=== PATIENT | male | born 1960 | race Caucasian/White ===

== ENCOUNTER 2021-01-31 10:30 | Outpatient (RCR) | payer OTHER, MEDICAID, SELFPAY ==
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
--- NOTE | 2020-11-08 09:21 | HP.PTREVAL ---
MELCHOR THOMPSON, It has been my pleasure to treat TREY VALADEZ over the last 5 visits for concussion. Please see the progress note below for an update on the physical therapy plan of care! Subjective: Neck pain 6/10 status quo. DORSEY is back maybe depending on how he sleeps. Dizzyness often in response to standing and turning for short period. Also getting up out of chair for short duration. Sometimes getting out of bed lasts a little longer. HEP of BD makes him dizzy. To neuro next week. Objective/Function: VOR 60 sec makes 3/10, VOR x 2 makes 5/10 lasting longer but only 12 seconds. Up form knee gives quick dizzyness similar to getting out of bed in am. PROM neck rotation is close to 70 B but patient self limits aROM due to pain at about 40 degrees. PROM ext to about 65 but slef limtied ext despite VC to 35. Walking and trasnferring I. Pt improving slowly with neck pain, dizzyness improving but slowly. Plan Plan: MH, STM, PROM neck adn progress to strengthen. Please give home neck stretches if toerates today well(UT, lev scap) Verbally monitor vestibular HEP Goals Goal 1:: Dizzyness abolished. Goal Time Frame: 4-6 Weeks Goal 2:: Pt feel DORSEY are 75% better adn 1/10 at worst. Goal Time Frame: 4-6 Weeks Goal 3:: Neck adn LB AROM without pain or hesitation Goal Time Frame: 4-6 Weeks Goal 4:: 29/30 FGA to limit risk Goal Time Frame: 4-6 Weeks Goal 5:: Pt feel 90% back to normal with activities at home. Goal Time Frame: 4-6 Weeks Anticipated Interventions Patient/Client Instruction: Educate patient on: Condition, Plan of Care For the Purpose of:: To decrease pain, To increase ROM, To improve muscle performance and motor function, To increase tolerance to activity/condition/position, To improve performance and independence with ADL's, To improve ability of physical actions for home/community/work/leisure, To improve gait and locomotor functions, To improve health of tissue Therapeutic Exercise to Include: Strength training, Balance training, Postural training, Flexibilty training, Gait and locomotor training, Neuromotor development, Passive ROM, Active ROM Comment: postiional. For the Purpose of:: To decrease pain, To improve nutrient delivery to tissue, To improve muscle performance and motor function, To increase tolerance to activity/condition/position, To improve ability of physical actions for home/community/work/leisure, To improve gait and locomotor functions Manual Therapy Techniques to Include: Mobilization, Passive ROM, Soft tissue mobilization For the Purpose of:: To decrease pain, To increase ROM, To improve nutrient delivery to tissue Thermo therapy (hot pack): Yes For the Purpose of:: To decrease pain Please do not hesitate to contact me at [phone] by phone or if you have questions or concerns regarding this new plan of care! Sincerely, Abdias Rae, DPT, OCS, CSCS
--- NOTE | 2021-01-31 11:53 | HP.PTREVAL ---
MELCHOR THOMPSON, It has been my pleasure to treat TREY VALADEZ over the last 8 visits for concussion. Please see the progress note below for an update on the physical therapy plan of care! Subjective: Pt. is here after being away for a bit. He reports that his neck is overall doing better, but is still having bouts of dizziness. Pt. reports having DORSEY daily with intensity up to 9-10/10 at times. pt. reports feeling ill for a few hours after last time he was checked for BPPV. He does reports some dizziness with getting up/down, rolling in bed, but also will get dizzy with just walking at times. He has not been to PT in awhile due to prior obligations. He is off work right, I have been lying low. He reports that his neck and LBP is much better, but is still having frequent DORSEY and dizziness. Objective/Function: Pt. have overall decent ROM of his cervical spine. Flexion- min loss slight increase in off feeling, ext min/mod loss sligth increase in off feeling, rotation min loss bilat NE, SB min loss bilat NE. Pt. has good shoulder ROM without increase in symptoms. Eye tracking laterally and horizontally NE, no nystagmus noted. Head shaking with spontaneous eye opening: no nystagmus, but reports slight off feeling.. + for slight dizziness with R devora xiong pike- no nystagmus, improved with second attempt or Marky's maneuver. Slight + with L devora xiong pike, decreased with Marky's to L side. I did not noticed a large amount of nystagmus with testing today, but he did report having some symptoms. He did report that they were much better than when he saw Dr. Abdias Rae, PT, OCS back in November. Pt. is starting ST for memory loss and word finding as well. Plan Plan: Assess patients tolerance to Marky's menuever next visit, potential re assessment of symptoms as needed. Add in PT Abdias Rae's assessment for need for further PT. Goals Goal 1:: Dizzyness abolished. Goal Time Frame: 4-6 Weeks Goal Progress: Progressing Goal 2:: Pt feel DORSEY are 75% better adn 1/10 at worst. Goal Time Frame: 4-6 Weeks Goal Progress: Progressing Goal 3:: Neck adn LB AROM without pain or hesitation Goal Time Frame: 4-6 Weeks Goal Progress: Progressing Goal 4:: 30 FGA to limit risk Goal Time Frame: 4-6 Weeks Goal Progress: Progressing Goal 5:: Pt feel 90% back to normal with activities at home. Goal Time Frame: 4-6 Weeks Goal Progress: Progressing Anticipated Interventions Patient/Client Instruction: Educate patient on: Condition, Plan of Care For the Purpose of:: To decrease pain, To increase ROM, To improve muscle performance and motor function, To increase tolerance to activity/condition/position, To improve performance and independence with ADL's, To improve ability of physical actions for home/community/work/leisure, To improve gait and locomotor functions, To improve health of tissue Therapeutic Exercise to Include: Strength training, Balance training, Postural training, Flexibilty training, Gait and locomotor training, Neuromotor development, Passive ROM, Active ROM Comment: postiional. For the Purpose of:: To decrease pain, To improve nutrient delivery to tissue, To improve muscle performance and motor function, To increase tolerance to activity/condition/position, To improve ability of physical actions for home/community/work/leisure, To improve gait and locomotor functions Manual Therapy Techniques to Include: Mobilization, Passive ROM, Soft tissue mobilization For the Purpose of:: To decrease pain, To increase ROM, To improve nutrient delivery to tissue Thermo therapy (hot pack): Yes For the Purpose of:: To decrease pain Please do not hesitate to contact me at [phone] by phone or if you have questions or concerns regarding this new plan of care! Sincerely, Alonzo Low DPT
--- NOTE | 2021-04-02 07:22 | HP.PT.NRP ---
TREY VALADEZ was seen in my office for initial evaluation on 10/20/20. The following Plan of Care was established for this patient: Initial Frequency: 2x /Week Initial Duration: 4-6 Weeks Patient/Client Instruction: Educate patient on: Condition, Plan of Care For the Purpose of:: To decrease pain, To increase ROM, To improve muscle performance and motor function, To increase tolerance to activity/condition/position, To improve performance and independence with ADL's, To improve ability of physical actions for home/community/work/leisure, To improve gait and locomotor functions, To improve health of tissue Therapeutic Exercise to Include: Strength training, Balance training, Postural training, Flexibilty training, Gait and locomotor training, Neuromotor development, Passive ROM, Active ROM For the Purpose of:: To decrease pain, To improve nutrient delivery to tissue, To improve muscle performance and motor function, To increase tolerance to activity/condition/position, To improve ability of physical actions for home/community/work/leisure, To improve gait and locomotor functions Manual Therapy Techniques to Include: Mobilization, Passive ROM, Soft tissue mobilization For the Purpose of:: To decrease pain, To increase ROM, To improve nutrient delivery to tissue Thermo therapy (hot pack): Yes For the Purpose of:: To decrease pain This patient was last seen in our office 01/31/21. Pertinent comments regarding their Physical therapy will appear below: Pt seen 8 visits of POC and was about 50% better. New POC was established but patient cancelled and no showed next two visits without rescheduling. at this point, it has been almost two months and I will disocntinue due to nonattendance. At this point I will be discontinuing this patient from physical therapy. I would be happy to see this patient again in the future if found appropriate by the physician. Thank you! Abdias Rae, DPT, OCS, CSCS Balance/Gait/Functional tests - Balance/Special Test Scores Functional Gait Assessment Score: 27 % Disability: 10.0000 Lower Extremity Functional Score: 32
== END 2021-01-31 19:00 | disposition home or self-care (01) ==
LOC: PT 10:30
PROVIDERS: PCP Internal Medicine
DX: S06.0X9D Concussion with loss of consciousness of unspecified duration, subsequent encounter (principal)
CPT/HCPCS: 97110; 97140; 97163; 97164; 97530

== ENCOUNTER 2021-09-20 18:44 | Emergency (ER) | payer OTHER, MEDICAID, SELFPAY ==
[2021-09-20 18:45] VITALS: BP 145/92; PULSE 111; RESP 16; TEMP 37.3; O2SAT 97; BMI 28.5
[2021-09-20 18:51] VITALS: BP 148/92; PULSE 111; RESP 16; TEMP 37.3; O2SAT 97
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
[2021-09-20 19:02] VITALS: O2SAT 97
[2021-09-20 19:03] LABS: Absolute Lymphocyte Count 3.44 X10^3/uL (0.83-4.51); Absolute Neutrophil Count 10.6 X10^3/uL (2.0-7.7); Basophil# 0.09 X10^3/uL; Basophil% 0.6 % (0-1); Eosinophil# 0.27 X10^3/uL; Eosinophils% 1.7 % (0-5); Hematocrit 49.9 % (40-54); Hemoglobin 17.6 g/dL (13.0-16.5); Lymphocyte # 3.44 X10^3/ul (0.83-4.51); Lymphocyte % 22.1 % (19-41); Mean Corp Hgb Conc 35.3 g/dL (32-36); Mean Corpuscular Hgb 31.5 pg (27.0-32.0); Mean Corpuscular Volume 89.3 fL (80-94); Mean Platelet Vol. 9.7 fl (6.2-12.0); Monocyte# 1.13 X10^3/uL; Monocyte% 7.3 % (0-10); NRBC Flagged by Analyzer 0 % (0-5); Neutrophil # 10.58 X10^3/uL (2.7-7.7); Neutrophil % 67.9 % (47-70); Platelet Count 247 K/mm3 (150-450); RBC Distribution Width CV 12.1 % (11.6-14.6); RBC Distribution Width SD 39.7 fl (35.1-43.9); Red Blood Count 5.59 M/mm3 (4.6-6.2); White Blood Count 15.6 K/mm3 (4.4-11.0)
[2021-09-20 19:19] LABS: Partial Thromboplast Time 26.4 Seconds (24.1-36.2)
[2021-09-20 19:26] LABS: Anion Gap 3 (5-15); BUN 14 mg/dL (7-18); Calcium,Total 11.9 mg/dL (8.5-10.1); Chloride 109 mmol/L (98-107); Creatinine, Serum 1.08 mg/dL (0.70-1.30); EST Glomerular Filtration Rate 74 mL/min (>60); Est Glom Filt Rate - Afr Amer 90 mL/min (>60); Estimated Creatinine Clearance 60.91 ml/min; Glucose 113 mg/dL (74-106); Potassium 3.8 mmol/L (3.5-5.1); Sodium Level 140 mmol/L (136-145); Troponin-I HS < 3 pg/mL (3.0-78.0)
--- NOTE | 2021-09-20 19:27 | ED.VIS.STROK ---
HPI History of Present Illness Chief Complaint: Weakness Informant: patient and spouse/S.O. Narrative Narrative: Patient presenting with an episode of ataxia. This occurred when he was walking about 20 minutes prior to arrival with a parking lot of [employer]. The significant other states he was bouncing from one side of the parking lot to the other, very unsteady. He did not fall. She states she grabbed him by the close before that could happen. He states he felt like his legs were going in front of him and he could not get on top of them. He denies any feeling of dizziness in his head, pain, vision changes/diplopia, peripheral neurologic symptoms of any kind. Denies feeling any other symptoms. The girlfriend is concerned because he had an episode this bad on September 02 when he was subsequently seen and admitted at [facility] and diagnosed with a TIA after getting an MRI. He was discharged on aspirin and clopidogrel, and he has had episodes similar to this almost every day since then, however this particular 1 was much worse, similar to the one he had on 09/02. The patient states today he has had 3 or so episodes of this, they are when he walks, but he has walked without the symptoms as well today. [facility] Medical History (Updated 09/20/21 @ 21:[address] Alfonso Deras MD) Cholecystectomy planned Traumatic brain injury Home Medications aspirin [Aspir-81] 81 mg PO DAILY 09/20/21 [History Last Taken Unknown] clopidogrel 75 mg PO DAILY 09/20/21 [History Last Taken Unknown] nortriptyline 50 mg PO DAILY 09/20/21 [History Last Taken Unknown] rimegepant [Nurtec ODT] 75 mg PO PRN PRN 09/20/21 [History Last Taken Unknown] Allergy/AdvReac Type Severity Reaction Status Date / Time No Known Allergies Allergy Verified 09/20/21 18:53 Social History Smoking Status: Current every day smoker tobacco type: cigarettes ROS ROS ED Constitutional Constitutional ED: Denies chills or fever(s) Eyes Eyes: Denies change in vision or diplopia ENT ENT ED: Denies rhinorrhea or sore throat Cardiovascular Cardiovascular: Denies chest pain or palpitations Respiratory/Chest Respiratory/Chest: Denies cough or dyspnea Gastrointestinal Gastrointestinal: Denies abdominal pain, diarrhea, nausea or vomiting Genitourinary Genitourinary ED: Denies dysuria or hematuria Musculoskeletal Musculoskeletal: Denies back pain or neck pain Integumentary Denies abscess or rash Neurologic Neurologic: Reports as per HPI and disequilibrium; Denies headache(s), paresthesias, radicular pain, seizure-like activity, syncope, tingling, tremor(s), vertigo or weakness Psychiatric Psychiatric: Denies anxiety or suicidal thoughts EXAM Physical Exam Const Vital Signs: 09/20/21 18:45 09/20/21 18:51 09/20/21 19:02 Temperature 99.2 F H 99.2 F H Temperature Source Oral Temporal Pulse Rate 111 H 111 H Respiratory Rate 16 16 Blood Pressure 145/92 H 148/92 H Blood Pressure Mean 109 110 Pulse Ox 97 97 97 Oxygen Delivery Method Room Air Room Air Room Air 09/20/21 20:12 09/20/21 21:58 Temperature 97.9 F Temperature Source Temporal Pulse Rate 102 H 95 Respiratory Rate 16 20 H Blood Pressure 157/90 H 147/96 H Blood Pressure Mean 112 113 Pulse Ox 97 92 Oxygen Delivery Method Room Air Room Air Positive well nourished and well developed General Appearance ED: well developed and NAD HEENT Reports moist mucous membranes normocephalic and atraumatic Eyes PERRL and EOMs intact bilaterally Neck full ROM and supple Resp normal respiratory effort and clear to auscultation bilaterally Cardio regular rate, regular rhythm and no murmurs Rate: tachycardic GI non-tender and non-distended Auscultation: normoactive bowel sounds Palpation: soft Back/Spine no CVA tenderness General Back: other FROM Extremity normal to inspection General Extremety ED: Negative for edema, pulses abnormal or tenderness General Extremity: Negative for edema or pulses abnormal Neuro oriented x3, CN's II-XII intact bilaterally, no sensory deficits noted and gait normal Neuro Narrative: Patient able to walk to the door of the room and back without any ataxia or issues. Normal qqoygm-dx-kzzt and zkhi-jq-xtee bilaterally. Sensorium / Orientation: awake and alert Motor Exam: strength 5/5 throughout Skin no rashes or lesions noted and no wounds STROKE Vital Signs/Narrative: Vital Signs Temp Pulse Resp BP Pulse Ox 09/20/21 21:58 97.9 F 95 20 H 147/96 H 92 09/20/21 20:12 102 H 16 157/90 H 97 09/20/21 19:02 97 09/20/21 18:51 99.2 F H 111 H 16 148/92 H 97 09/20/21 18:45 99.2 F H 111 H 16 145/92 H 97 NIHSS Initial: 1a Level of Consciousness: 0 1b LOC Questions (Score 2 if aphasic/stupor): 0 1c LOC Commands (Only score 1st attempt): 0 2 Best Gaze (If aphasic, use reflexive mvmts.): 0 3 Visual: 0 4 Facial Palsy: 0 5 Motor Arm Right (UN = amputation/fusion): 0 5 Motor Arm Left: 0 6 Motor Leg Right: 0 6 Motor Leg Left: 0 7 Limb ataxia (Only + if out of proportion): 0 8 Sensory (Aphasia/stupor=0 or 1, coma=2): 0 9 Best Language: 0 10 Dysarthria (mute, coma=2, intubated=UN): 0 11 Extinction and Inattention (only scored if +): 0 Total Score: 0 MDM MDM MDM Narrative Medical decision making narrative: Patient remained clinically hemodynamically stable while we were working him up. He has a nonspecific leukocytosis of 15.6 of unknown etiology, with no left shift or bandemia. Urinalysis and chest x-ray were obtained, that showed no evidence of any infections. A family member the patient called and was concerned that he may be abusing some type of substance; since we had a urinalysis already performed, I added a urine drug screen, it is negative. This does not rule out all possibilities although it is unknown if they would be involved were causing these intermittent symptoms anyway. I attempted to discuss with neurology on-call at [facility] since the patient was recently discharged from there and was seen by neurology. As of the dictation, have been unable to reach them. We talked to the transfer center and had been paged again, they were trying still but there was debate about who is actually electronics engineering professor for neurology there. The patient's significant other became irate, angry at me and other staff because she had not seen anyone in the room, although nurses had indeed been in and out, and I had one of the nurses update her with the tests that we had back so far at the time, when the rest came back I went in to personally update them. She was speaking rudely and interrupting, concerned we were not concerned about a stroke apparently. I tried to explain to her that it was just the opposite, which is why I wanted to speak with Neurology before we either admitted him here or transferred back to [facility]; but he did not need to be a stroke alert due to resolved symptoms that had been recurrent for several weeks, and so he was not an IV tPA candidate, nor likely to have acute LVO. She was verbally a hindrance to my clinical reevaluation. After she left, I reevaluated the patient, who is asymptomatic and continuing to ambulate around the room normally w/o ataxia. He wanted to leave [place], because she's my ride back to [place]. I explained to him that I really wanted to speak with the Neurologist first, and pleaded for him to stay at least until I could discuss his case with them and try to get a recommendation. He was appreciative of our care, and left with his significant other and refused to sign the AMA paper. Lab Data Attestation: I reviewed the patient's lab results. Labs: Laboratory Results - last 24 hr 09/20/21 09/20/21 09/20/21 18:47 18:47 18:47 WBC 15.6 H RBC 5.59 Hgb 17.6 H Hct 49.9 MCV 89.3 MCH 31.5 MCHC 35.3 RDW Std Deviation 39.7 RDW Coeff of Kimmie 12.1 Plt Count 247 MPV 9.7 Immature Gran % (Auto) 0.400 Neut % (Auto) 67.9 Lymph % (Auto) 22.1 [place] % (Auto) 7.3 Eos % (Auto) 1.7 Baso % (Auto) 0.6 Absolute Neuts (auto) 10.6 H Absolute Lymphs (auto) 3.44 Nucleated RBC % 0 PT 13.0 INR 1.0 APTT 26.4 Sodium 140 Potassium 3.8 Chloride 109 H Carbon Dioxide 28.0 Anion Gap 3 L BUN 14 Creatinine 1.08 Estim Creat Clear Calc 60.91 Est GFR (MDRD) Af Amer 90 Est GFR (MDRD) Non-Af 74 BUN/Creatinine Ratio 13.0 Glucose 113 H Calcium 11.9 H Troponin I High Sens < 3 L Urine Color Urine Clarity Urine pH Ur Specific [place] Urine Protein Urine Glucose (UA) Urine Ketones Urine Occult Blood Urine Nitrite Urine Bilirubin Urine Urobilinogen Ur Leukocyte Esterase Urine RBC Urine WBC Ur Squamous Epith Cells Calcium Oxalate Crystal Amorphous Sediment Urine Bacteria Urine Mucus Urine Opiates Screen Urine Methadone Screen Ur Barbiturates Screen Ur Phencyclidine Scrn Ur Amphetamines Screen MDMA (Ecstasy) Screen U Benzodiazepines Scrn Urine Cocaine Screen U Cannabinoids Screen Ur Drug Screen Comment 09/20/21 09/20/21 19:54 19:54 WBC RBC Hgb Hct MCV MCH MCHC RDW Std Deviation RDW Coeff of Kimmie Plt Count MPV Immature Gran % (Auto) Neut % (Auto) Lymph % (Auto) [place] % (Auto) Eos % (Auto) Baso % (Auto) Absolute Neuts (auto) Absolute Lymphs (auto) Nucleated RBC % PT INR APTT Sodium Potassium Chloride Carbon Dioxide Anion Gap BUN Creatinine Estim Creat Clear Calc Est GFR (MDRD) Af Amer Est GFR (MDRD) Non-Af BUN/Creatinine Ratio Glucose Calcium Troponin I High Sens Urine Color Yellow Urine Clarity Sl. Cloudy Urine pH 6.0 Ur Specific [place] 1.020 Urine Protein 15 H Urine Glucose (UA) Normal Urine Ketones 5 H Urine Occult Blood 10 H Urine Nitrite Negative Urine Bilirubin Negative Urine Urobilinogen 1 H Ur Leukocyte Esterase 25 H Urine RBC 0-5 SEEN Urine WBC 0-5 SEEN Ur Squamous Epith Cells 0-5 SEEN Calcium Oxalate Crystal RARE Amorphous Sediment 1+ PHOS Urine Bacteria 0 SEEN Urine Mucus 0 SEEN Urine Opiates Screen NEGATIVE Urine Methadone Screen NEGATIVE Ur Barbiturates Screen NEGATIVE Ur Phencyclidine Scrn NEGATIVE Ur Amphetamines Screen NEGATIVE MDMA (Ecstasy) Screen NEGATIVE U Benzodiazepines Scrn NEGATIVE Urine Cocaine Screen NEGATIVE U Cannabinoids Screen NEGATIVE Ur Drug Screen Comment Radiography Diagnostic Testing: Clinical Impression(s) from Imaging Studies Brain CT 09/20/21 19:35 IMPRESSION: Chronic involutional changes of the brain. Electronically Signed: Marky Ruiz MD at 19:47 EST , ADDENDUM: 09/20/212000 IMPRESSION: Chronic involutional changes of the brain. N.B. : The above Results were Read Back by Marky Ruiz MD to Alfonso Deras MD, and understanding confirmed on 09/20/2021 19:54:23 (ET). Electronically Signed: Marky Ruiz MD at 19:47 EST , Chest X-Ray 09/20/21 19:53 IMPRESSION: There are no acute findings. Electronically Signed: Marky Ruiz MD at 20:13 EST , EKG Initial EKG: Attestation: I personally reviewed and interpreted this EKG as follows: Interpretation: No Acute Injury Pattern and Sinus Tachycardia (103) Stroke Documentation Questions Stroke Team Activated: No (Due to recurrent episodes that are inconsistent for the past 2+ weeks) Discharge Plan Triage Chief Complaint: Weakness ED Provider: Alfonso Deras Dx/Rx/DC Orders Clinical Impression: Intermittent ataxia Prescriptions: No Action clopidogrel 75 mg tablet 75 mg PO DAILY RF: 0 aspirin [Aspir-81] 81 mg Tablet,Delayed Release (Dr/Ec) 81 mg PO DAILY RF: 0 nortriptyline 50 mg capsule 50 mg PO DAILY RF: 0 Nurtec ODT 75 mg tablet,disintegrating 75 mg PO PRN PRN (Reason: Migraine Headache) RF: 0 Referrals: RUSTY VILLAGRAN [Other] Disposition Disposition: Against Medical Advice Discharge Date/Time: 09/20/21 22:09 Capacity Capacity Assessment Tool Can the patient make a choice & communicate that choice?: Yes Can the patient understand benefits, risks and alternatives?: Yes Can the patient make a logical, rational choice?: Yes Is the choice the patient makes consistent w/ their values?: Yes Is there an impending, emergent risk to the patient?: Unable to Determine (Do not suspect so, but as of this document/dictation, unable to reach Neurology at [facility] where pt was just discharged.) Does the patient have an Advance Directive?: No
--- NOTE | 2021-09-20 19:35 | CT_ITS ---
We are attempting to reach an attending provider to discuss findings. An addendum with communication details will be sent when the communication is complete. EXAM: CT HEAD WITHOUT INTRAVENOUS CONTRAST CLINICAL INDICATION: Neuro deficit, acute, stroke suspected TECHNIQUE: Multiple axial images were obtained of the head without intravenous contrast. This CT exam was performed using one or more of the following dose reduction techniques: automated exposure control, adjustment of the mA and/or kV according to patient size, and/or use of iterative reconstruction technique. This report was created using [employer] report weartolook technology. COMPARISON: None. FINDINGS: BRAIN AND EXTRA-AXIAL SPACES: Chronic involutional changes of the brain. There is/ are old right elements lacunar infarct(s). No intra- or extra-axial hemorrhage. No intracranial mass or mass effect. Posterior fossa structures are unremarkable. Ventricles are appropriate for age. No hydrocephalus. Basal cisterns are patent. BONES/JOINTS: Unremarkable. No discrete lytic or blastic abnormalities. SINUSES: Unremarkable as visualized. Clear. MASTOID AIR CELLS: Unremarkable. Clear. ORBITS: Visualized globes, extraocular muscles, optic nerves and retrobulbar fat appear unremarkable. CT/STROKE Brain/Head without Cont IMPRESSION: Chronic involutional changes of the brain. Electronically Signed: Marky Ruiz MD at 19:47 EST ,
--- NOTE | 2021-09-20 19:53 | RAD_ITS ---
STUDY: XR Chest 1 View 09/20/2021 7:43 PM REASON FOR EXAM: Male, 61 years old. CHEST PAIN Neuro deficit, acute, stroke suspected COMPARISON: None TECHNIQUE: XR Chest 1 View FINDINGS: There is no demonstrated pleural abnormality. Normal heart size. Normal mediastinum. Normal torrie. Prominent appearing increased interstitial lung markings. Normal visualized pulmonary arteries. There is atherosclerotic calcification of the aortic arch with tortuosity. There are diffuse degenerative changes of the visualized thoracic spine. There is degenerative osteoarthritis of the bilateral shoulders. There is no demonstrated abnormality of the visualized soft tissue structures of the upper abdomen. RAD/Chest 1 View IMPRESSION: There are no acute findings. Electronically Signed: Marky Ruiz MD at 20:13 EST ,
[2021-09-20 20:05] LABS: Bacteria 0 SEEN /hpf (None Seen); Mucous, Urine 0 SEEN /hpf (<or=2+)
[2021-09-20 20:12] VITALS: BP 157/90; PULSE 102; RESP 16; O2SAT 97
[2021-09-20 20:44] LABS: Color, Urine Yellow (Yellow); Glucose, Dipstick Normal (Normal); Ketone-Dipstick 5 mg/dl (Negative); Leukocyte Esterase-Dipstick 25 /ul (Negative); Nitrite-Dipstick Negative (Negative); Occult Blood-Urine 10 /ul (Negative); Protein-Dipstick 15 mg/dl (Negative); Urine Bilirubin Dipstick Negative (Negative); Urine Clarity Sl. Cloudy (Clear); Urine Urobilinogen 1 mg/dl (Normal)
[2021-09-20 20:53] LABS: Red Blood Cells-Urine 0-5 SEEN /hpf (0-5); Squamous Epithelial Cells - UA 0-5 SEEN /hpf (0-5); White Blood Cells 0-5 SEEN /hpf (0-5)
[2021-09-20 20:54] LABS: Amorphous Sediment 1+ PHOS; Calcium Oxalate Crystals Ur RARE /hpf (<or=2+)
[2021-09-20 21:07] LABS: Amphetamine Urine VISTA NEGATIVE (<1000 ng/mL); Barbiturate Urine VISTA NEGATIVE (< 200 ng/mL); Benzodiazepine Urine VISTA NEGATIVE (< 200 ng/mL); Cocaine Urine VISTA NEGATIVE (< 300 ng/mL); Ecstacy Urine VISTA NEGATIVE (< 500 ng/mL); Methadone Urine VISTA NEGATIVE (< 300 ng/mL); PCP Urine VISTA NEGATIVE (< 25 ng/mL); THC Urine VISTA NEGATIVE (< 50 ng/mL); Vista UDS pH Range 6
[2021-09-20 21:58] VITALS: BP 147/96; PULSE 95; RESP 20; TEMP 36.6; O2SAT 92
--- NOTE | 2021-09-20 22:16 | ED.RN ---
Patient and significant other at bedside c/o wait times. Dr. Deras went into patient's room to update them that they were waiting for the rn oncology neurologist to return a page to give his input on patient's head CT. Pt. SO frequently interupting Dr. Deras during conversation and unhappy with his answers. SO was unhappy with the tone of the conversation and began to yell at Dr. Deras. SO left room requesting charge nurse, director of hospital, security, or police communications dispatcher all while recording ED staff. SO left to go to car and patient began to get dressed and removed his own IV. Dr. Deras came to bedside to encourage patient to stay and wait for neurologist call to ensure safety. Pt. did not want to stay and left with SO. Refused to sign AMA paperwork. Pt. son Jamel was notified that he left against medical advice. Son's phone number is [phone].
[2021-09-21 07:31] LABS: Bedside Glucose 117 mg/dL (74-106)
== END 2021-09-20 22:09 | disposition left against medical advice (07) ==
PROVIDERS: Emergency Provider Emergency Medicine; Visit Provider Emergency Medicine
DX: R27.0 Ataxia, unspecified (principal); R51.9 Headache, unspecified; F17.210 Nicotine dependence, cigarettes, uncomplicated; Z86.73 Personal history of transient ischemic attack (TIA), and cerebral infarction without residual deficits; Z53.29 Procedure and treatment not carried out because of patient's decision for other reasons; Z79.82 Long term (current) use of aspirin; Z79.899 Other long term (current) drug therapy
CPT/HCPCS: 70450; 71045; 80048; 80307; 81001; 82962; 84484; 85025; 85610; 85730; 93005; 99283

== ENCOUNTER 2021-12-07 14:01 | Emergency (ER) | payer MEDICAID, SELFPAY ==
[2021-12-07] VITALS (7 sets, daily range): BP systolic 132–151; BP diastolic 94–106; PULSE 82–103; RESP 16–17; TEMP 36.4; O2SAT 97–99; BMI 26.3
--- NOTE | 2021-12-07 14:12 | CM.ED ---
Addendum entered by Sun Zepeda 12/07/21 14:15: RYANNE called [facility]. Patient has been charged with [employer] and OMVI. Patient has been discharged. Sun TREVINO Original Note: RYANNE Note: RYANNE called Eliane at [facility]. She reviewed there records and they have no record of this patient. Sun TREVINO
--- NOTE | 2021-12-07 14:40 | CT_ITS ---
STUDY: CT BRAIN WITHOUT CONTRAST REASON FOR EXAM: Male, 61 years old. Change in Mental Status RADIATION DOSAGE (If Supplied By Facility): CTDIvol = ( 44.99 ) mGy, DLP = ( 998.58 ) mGycm TECHNIQUE: Transaxial CT imaging of the brain was performed without administration of intravenous contrast material. Individualized dose optimization techniques were used for this CT. COMPARISON: 09/20/2021 FINDINGS: Normal soft tissue structures. Normal calvarium. There is moderate cerebral atrophy with widening of the extra-axial spaces and ventricular dilatation. There are areas of decreased attenuation within the white matter tracts of the supratentorial brain, consistent with microvascular disease changes. Normal basal ganglia and thalami. Normal brainstem. Normal cerebellum. There is no intracranial hemorrhage. There are no findings of an acute ischemic infarction. Normal visualized paranasal sinuses. CT/Brain/Head without Contrast IMPRESSION: Chronic involutional changes of the brain. Electronically Signed: Gopi Seals MD at 16:45 EDT ,
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
[2021-12-07 15:11] LABS: Absolute Lymphocyte Count 2.85 X10^3/uL (0.83-4.51); Absolute Neutrophil Count 4.9 X10^3/uL (2.0-7.7); Basophil# 0.05 X10^3/uL; Basophil% 0.6 % (0-1); Eosinophil# 0.25 X10^3/uL; Eosinophils% 2.8 % (0-5); Hematocrit 39.3 % (40-54); Hemoglobin 13.6 g/dL (13.0-16.5); Lymphocyte # 2.85 X10^3/ul (0.83-4.51); Lymphocyte % 31.7 % (19-41); Mean Corp Hgb Conc 34.6 g/dL (32-36); Mean Corpuscular Volume 89.5 fL (80-94); Mean Platelet Vol. 9.6 fl (6.2-12.0); Monocyte# 0.88 X10^3/uL; Monocyte% 9.8 % (0-10); NRBC Flagged by Analyzer 0 % (0-5); Neutrophil # 4.94 X10^3/uL (2.7-7.7); Neutrophil % 54.9 % (47-70); Platelet Count 247 K/mm3 (150-450); RBC Distribution Width SD 39.8 fl (35.1-43.9); Red Blood Count 4.39 M/mm3 (4.6-6.2)
[2021-12-07 15:30] LABS: Anion Gap 3 (5-15); BUN 13 mg/dL (7-18); BUN/Creat Ratio 16.1 RATIO (10-20); Chloride 108 mmol/L (98-107); Creatinine, Serum 0.81 mg/dL (0.70-1.30); EST Glomerular Filtration Rate 103 mL/min (>60); Est Glom Filt Rate - Afr Amer 125 mL/min (>60); Estimated Creatinine Clearance 78.05 ml/min; Glucose 80 mg/dL (74-106); Potassium 3.4 mmol/L (3.5-5.1); Sodium Level 140 mmol/L (136-145)
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
[2021-12-07 17:28] LABS: Amphetamine Urine VISTA NEGATIVE (<1000 ng/mL); Barbiturate Urine VISTA NEGATIVE (< 200 ng/mL); Benzodiazepine Urine VISTA NEGATIVE (< 200 ng/mL); Cocaine Urine VISTA NEGATIVE (< 300 ng/mL); Ecstacy Urine VISTA NEGATIVE (< 500 ng/mL); Methadone Urine VISTA NEGATIVE (< 300 ng/mL); PCP Urine VISTA NEGATIVE (< 25 ng/mL); THC Urine VISTA NEGATIVE (< 50 ng/mL); Vista UDS pH Range 6
--- NOTE | 2021-12-07 18:05 | CM.ED ---
Social Work Note SW received message from [facility] requesting call back regarding referral. SW placed a call back to [facility] and answered questions. Pt and pt's family were updated on the process and that referrals were sent to [facility] in [place] and [facility]. Pt's sister asked about [facility]. Pt prefers to wait to hear back from [place]. Eliane Rojas GRAVEL ROOFER, INSIDE SALES ADVERTISING EXECUTIVE
--- NOTE | 2021-12-07 18:51 | EKG12_ITS ---
Test Reason : [facility] [place] Blood Pressure : / mmHG Vent. Rate : 087 BPM Atrial Rate : 087 BPM P-R Int : 170 ms QRS Dur : 096 ms QT Int : 382 ms P-R-T Axes : 039 002 033 degrees QTc Int : 459 ms Normal sinus rhythm Normal ECG Confirmed by DELGADO STEIN MD ([id number]), scientific publications editor PATRICIA DE SANTIAGO ([id number]) on 12/11/2021 1:09:29 PM Referred By: VERONICA Confirmed By:DELGADO STEIN MD
--- NOTE | 2021-12-07 19:51 | CM.ED ---
Addendum entered by Eliane Rojas 12/07/21 20:23: SW placed a call to [facility]. Accepting physician is Dr. Hussein. RN to RN number [phone]. Pt bed number is [id number]. Addendum entered by Eliane Rojas 12/07/21 20:15: Pt updated on acceptance to [facility]. SW placed a call to pt's sister Stefanie and updated her on acceptance to [facility]. Stefanie states understanding. Addendum entered by Eliane Rojas 12/07/21 20:05: SW did ask [facility] about their visitation policy and was told that they have no visitation. Addendum entered by Eliane Rojas 12/07/21 20:05: SW also received message from Sandra at [facility] stating they have declined pt. Original Note: Social Work Note SW received call from [facility] stating to fax over the [facility] and then they will call back with accepting physician information. RYANNE faxed [facility] to [facility]. Eliane Rojas PRIMARY MILL ROLLER, ESTHETICIAN
--- NOTE | 2021-12-07 20:31 | NURSING ---
CALLED PHYSICIANS AT 830PM ETA 3-4 HRS
--- NOTE | 2021-12-07 21:55 | NURSING ---
PHYSICIANS ARRIVED AT 955PM
== END 2021-12-07 22:09 ==
PROVIDERS: Emergency Provider Emergency Medicine; Visit Provider Emergency Medicine
DX: F29 Unspecified psychosis not due to a substance or known physiological condition (principal); F17.210 Nicotine dependence, cigarettes, uncomplicated; Z79.82 Long term (current) use of aspirin; Z79.899 Other long term (current) drug therapy; Z86.73 Personal history of transient ischemic attack (TIA), and cerebral infarction without residual deficits
CPT/HCPCS: 36415; 70450; 80048; 80307; 82077; 85025; 87811; 93005; 99285